=== PATIENT | male | born 2005 | race Caucasian/White ===

== ENCOUNTER 2023-10-27 13:18 | Emergency (ER) | payer OTHER ==
[~2023-10-27] VITALS: Ht 167.6 cm; Wt 72.6 kg
[2023-10-27 13:34] VITALS: BP 133/58; PULSE 89; RESP 18; TEMP 98; O2SAT 98
[2023-10-27 14:52] LABS: APPEARANCE,URINE CLEAR (CLEAR); BILIRUBIN,URINE NEGATIVE (NEGATIVE); BLOOD, URINE NEGATIVE (NEGATIVE); COLOR,URINE YELLOW (YELLOW); LEUKOCYTE ESTERASE ,URINE NEGATIVE (NEGATIVE); NITRITE, URINE NEGATIVE (NEGATIVE); PH,URINE 6.5 (5.0-9.0); PROTEIN,URINE NEGATIVE (NEGATIVE); UGLUCOSE NEGATIVE (NEGATIVE); UROBILINOGEN,URINE 0.2 EU/dL (0.2 - 1)
[2023-10-27 17:34] VITALS: BP 135/62; PULSE 86; RESP 19; TEMP 98; O2SAT 98
== END 2023-10-27 17:35 | disposition home or self-care (01) ==
LOC: MED 13:18
DX: N50.811 Right testicular pain (principal)
CPT/HCPCS: 36415; 76870; 81003; 99284; Q0092